=== PATIENT | female | born 1955 | race Caucasian/White ===

== ENCOUNTER 2022-04-10 16:17 | Emergency (ER) | payer MEDICARE ==
[~2022-04-10] VITALS: Ht 165.1 cm; Wt 49.4 kg
[2022-04-10] MEDS ORDERED: LISINOPRIL5 MG PO (16:41)
[2022-04-10] MEDS ORDERED: ROSUVASTATIN CA40 MG PO (16:42)
[2022-04-10] MEDS ORDERED: ALENDRONATE SOD70 MG PO (16:42)
[2022-04-10] MEDS ORDERED: ASPIRIN81 MG PO (16:43)
--- NOTE | 2022-04-10 17:43 | EKG ---
[facility] [address] [facility] [place], [place] [address] Signed Normal sinus rhythm Possible Left atrial enlargement Left anterior fascicular block Cannot rule out Anterior infarct , age undetermined Abnormal ECG No previous ECGs available Confirmed by TIARA BURRIS MD ([id number] on 04/10/2022 5:43:26 PM Electronically Signed By: TIARA BURRIS MD 04/10/221742 PATIENT NAME: RENATAJONAH Electrocardiogram DATE OF : 53 PHYSICIAN: TIARA BURRIS MD REPORT #: [id number] REPORT IS CONFIDENTIAL AND NOT TO BE RELEASED WITHOUT AUTHORIZATION
[2022-04-10] MEDS ORDERED: LASIX20 MG PO (19:15)
[2022-04-10] MEDS ORDERED: K-TAB ER20 MEQ PO (19:15)
== END 2022-04-10 19:29 | disposition home or self-care (01) ==
LOC: ED 16:17
DX: I50.9 Heart failure, unspecified (principal); I25.2 Old myocardial infarction; Z88.0 Allergy status to penicillin; Z79.82 Long term (current) use of aspirin
CPT/HCPCS: 36415; 71045; 80053; 83880; 84484; 85025; 85379; 93005; 93010; 96374; 99285-25; J1940